=== PATIENT | male | born 1980 | race Caucasian/White ===

== ENCOUNTER 2025-03-17 08:23 | Day surgery (SDC) | payer OTHER ==
[~2025-03-17] VITALS: Ht 185.4 cm; Wt 94.5 kg
[~2025-03-17 08:23] MED LIST: GLYCOPYRROLATE 0.2 MG/ML VIAL ONE; PROPOFOL 1% 20 ML VIAL IVP ONE; SODIUM CHLORIDE 0.9% 1,000 ML ONE
[2025-03-17] MEDS: SODIUM CHLORIDE 0.9% 1,000 ML IV ONE (09:42)
[2025-03-17] MEDS ORDERED: OXYGEN THERAPY IH SCH (20:00)
== END 2025-03-17 12:10 | disposition home or self-care (01) ==
LOC: SURGERY 08:23
PROVIDERS: ATTEND Specialist
DX: R13.10 Dysphagia, unspecified (principal); K22.2 Esophageal obstruction; K20.90 Esophagitis, unspecified without bleeding; K44.9 Diaphragmatic hernia without obstruction or gangrene; Z91.012 Allergy to eggs; Z91.018 Allergy to other foods
CPT/HCPCS: 43249; C1769; J2704; J3490; J7030; 88305